=== PATIENT | male | born 1980 | race Two or more races ===

== ENCOUNTER 2020-08-23 02:29 | Emergency (ER) | payer MEDICAID ==
[~2020-08-23] VITALS: Ht 188 cm; Wt 158.8 kg
[2020-08-23 03:20] VITALS: BP 149/86
== END 2020-08-23 03:49 | disposition home or self-care (01) ==
LOC: EDBD 02:29 → ER 02:31
DX: S82.841A Displaced bimalleolar fracture of right lower leg, initial encounter for closed fracture (principal); F10.129 Alcohol abuse with intoxication, unspecified; E66.9 Obesity, unspecified; Z68.41 Body mass index [BMI] 40.0-44.9, adult; W01.0XXA Fall on same level from slipping, tripping and stumbling without subsequent striking against object, initial encounter; Y93.89 Activity, other specified; Y92.89 Other specified places as the place of occurrence of the external cause; Y99.8 Other external cause status; Y90.8 Blood alcohol level of 240 mg/100 ml or more
CPT/HCPCS: 29515; 73610